=== PATIENT | male | born 1970 | race Hispanic/Latino ===

== ENCOUNTER 2017-05-31 06:57 | Emergency (ER) | payer SELFPAY ==
[2017-05-31] MEDS ORDERED: NORCO 5/325 PO ONE (08:04)
[2017-05-31 08:12] LABS: Bilirubin,Urine NEG (Negative); Blood,Urine SM (Negative); Ketones,Urine NEG (Negative); Leukocyte Esterase,Urine NEG (Negative); Mucus,Urine 1+ /HPF; Nitrite,Urine NEG (Negative); Protein,Urine <15 mg/dL mg/dL (Negative); Urobilinogen,Urine < 2.0 mg/dL (<2.0)
[2017-05-31 08:12] LABS: Basophils % (Auto) 0.5 % (0.0-1.8); Eosinophils % (Auto) 2.1 % (0.0-4.3); Hematocrit 45.3 % (35.5-45.6); Hemoglobin 15.1 gm/dl (11.8-15.2); Mean Corpuscular HGB Conc 33 % (32-34); Mean Corpuscular Hemoglobin 30 pg (28-32); Mean Corpuscular Volume 90 fl (84-94); Platelet Count 166 K/mm3 (140-440); Red Blood Count 5.04 M/mm3 (3.65-5.03); Red Cell Distribution Width 13.9 % (13.2-15.2)
[2017-05-31 08:30] LABS: Alanine Aminotransferase 32 units/L (7-56); Albumin 4.4 g/dL (3.9-5); Albumin/Globulin Ratio 1.6 %; Alkaline Phosphatase 53 units/L (35-129); Anion Gap 17 mmol/L; BUN/Creatinine Ratio 16.66; Blood Urea Nitrogen 15 mg/dL (9-20); Calcium 8.5 mg/dL (8.4-10.2); Carbon Dioxide 23 mmol/L (22-30); Chloride 101.5 mmol/L (98-107); Glucose 132 mg/dL (75-100); Lipase 25 units/L (13-60); Sodium 137 mmol/L (137-145); Total Protein 7.2 g/dL (6.3-8.2)
--- NOTE | 2017-05-31 08:57 | Emergency Department Report ---
ED Back Pain/Injury HPI - General Chief Complaint: Abdominal Pain Stated Complaint: BACK PAIN/RT SIDE SWOLLEN Time Seen by Provider: 05/31/17 07:56 Source: patient Mode of arrival: Ambulatory Limitations: No Limitations - History of Present Illness Initial Comments: PT c/o being "in pain" PT states the pain started Tuesday at work and is still constant. 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 PT denies injury or trauma. PT states that he has had this intermittent pain for years. PT states this is the longest the pain has lasted. PT states the pain is worse when he sits. Pt states his back is swollen. MD Complaint: back pain -: Gradual, days(s) (5 days ) Similar Symptoms Previously: Yes Place: work Radiation: abdomen Severity scale (0 -10): 10 Quality: sharp Consistency: constant Improves With: none Worsens With: movement, sitting upright Context: unknown Associated Symptoms: abdominal pain. denies: difficulty walking, difficulty urinating, incontinence, nausea/vomiting - Related Data Previous Rx's Medication Instructions Recorded Last Taken Type Acetaminophen/Codeine [Tylenol #3] 1 tab PO Q6H PRN #12 tab 05/31/17 Unknown Rx Ibuprofen [Motrin] 600 mg PO Q8H PRN #15 tablet 05/31/17 Unknown Rx methOCARBAMOL [Robaxin TAB] 500 mg PO Q6H PRN #15 tablet 05/31/17 Unknown Rx Allergies Allergy/AdvReac Type Severity Reaction Status Date / Time No Known Allergies Allergy Unverified 04/10/16 15:00 ED Review of Systems ROS: Stated complaint: BACK PAIN/RT SIDE SWOLLEN Other details as noted in HPI Comment: All other systems reviewed and negative Constitutional: denies: chills, fever Respiratory: denies: shortness of breath, SOB with exertion, SOB at rest Cardiovascular: denies: chest pain, syncope Gastrointestinal: abdominal pain. denies: nausea, vomiting Musculoskeletal: back pain Skin: denies: change in color Neurological: denies: weakness ED Past Medical Hx - Past Medical History Previous Medical History?: No - Surgical History Past Surgical History?: No - Social History Smoking Status: Current Some Day Smoker Substance Use Type: Alcohol - Medications Home Medications: Home Medications Medication Instructions Recorded Confirmed Last Taken Type Acetaminophen/Codeine [Tylenol #3] 1 tab PO Q6H PRN #12 tab 05/31/17 Unknown Rx Ibuprofen [Motrin] 600 mg PO Q8H PRN #15 tablet 05/31/17 Unknown Rx methOCARBAMOL [Robaxin TAB] 500 mg PO Q6H PRN #15 tablet 05/31/17 Unknown Rx ED Physical Exam - General Limitations: No Limitations General appearance: alert, in no apparent distress - Head Head exam: Present: atraumatic, normocephalic - Eye Eye exam: Present: normal appearance, PERRL, EOMI. Absent: conjunctival injection - Neck Neck exam: Present: normal inspection, full ROM. Absent: tenderness - Respiratory Respiratory exam: Present: normal lung sounds bilaterally. Absent: respiratory distress, chest wall tenderness, accessory muscle use - Cardiovascular Cardiovascular Exam: Present: regular rate, normal rhythm, normal heart sounds - GI/Abdominal GI/Abdominal exam: Present: soft, normal bowel sounds. Absent: tenderness, guarding, rebound - Expanded GI/Abdominal Exam Expanded GI/Abdominal exam: Absent: Schreiber's sign, tenderness at Mcburney's Point - Extremities Exam Extremities exam: Present: normal inspection, full ROM - Back Exam Back exam: Present: normal inspection, tenderness (R lumbar ), muscle spasm (R lumbar ), paraspinal tenderness (R lumbar ). Absent: full ROM, CVA tenderness ( R), CVA tenderness (L), vertebral tenderness - Expanded Back Exam Expanded Back exam: Absent: saddle anesthesia Back exam: Sciatic Notch Tenderness: Right - Neurological Exam Neurological exam: Present: alert, oriented X3, normal gait - Psychiatric Psychiatric exam: Present: normal affect, normal mood - Skin Skin exam: Present: warm, dry, intact, normal color ED Course Vital Signs 05/31/17 05/31/17 07:11 10:56 Temperature 98.7 F Pulse Rate 75 61 Respiratory 20 18 Rate Blood Pressure 118/77 Blood Pressure 139/95 [Right] O2 Sat by Pulse 100 98 Oximetry - Reevaluation(s) Reevaluation #1: 05/31/17 09:04 PT aware of lab results and dx. PT denies pain relief. PT aware new orders placed. Reevaluation #2: 05/31/17 10:40 PT states his pain decreased after Toradol and Solu-medrol - Pulse Oximetry Interpretation Digit-Finger Initial Pulse Oximetry Readin Actions Taken: none ED Medical Decision Making - Lab Data Result diagrams: 05/31/17 07:59 05/31/17 07:59 Labs 05/31/17 05/31/17 05/31/17 07:53 07:59 07:59 WBC 7.0 RBC 5.04 H Hgb 15.1 Hct 45.3 MCV 90 MCH 30 MCHC 33 RDW 13.9 Plt Count 166 Lymph % (Auto) 19.9 [place]ake % (Auto) 7.9 H Eos % (Auto) 2.1 Baso % (Auto) 0.5 Lymph # 1.4 Leake # 0.6 Eos # 0.1 Baso # 0.0 Seg Neutrophils % 69.6 Seg Neutrophils # 4.8 Sodium 137 Potassium 4.0 Chloride 101.5 Carbon Dioxide 23 Anion Gap 17 BUN 15 Creatinine 0.9 Estimated GFR > 60 BUN/Creatinine Ratio 16.66 Glucose 132 H Calcium 8.5 Total Bilirubin 0.60 AST 29 ALT 32 Alkaline Phosphatase 53 Total Protein 7.2 Albumin 4.4 Albumin/Globulin Ratio 1.6 Lipase 25 Urine Color Yellow Urine Turbidity Clear Urine pH 5.0 Ur Specific [place] 1.023 Urine Protein <15 mg/dl Urine Glucose (UA) Neg Urine Ketones Neg Urine Blood Sm Urine Nitrite Neg Urine Bilirubin Neg Urine Urobilinogen < 2.0 Ur Leukocyte Esterase Neg Urine WBC (Auto) 1.0 Urine RBC (Auto) 2.0 U Epithel Cells (Auto) < 1.0 Urine Mucus 1+ - Differential Diagnosis strain, renal colic, sciatica Critical Care Time: No Critical care attestation.: If time is entered above; I have spent that time in minutes in the direct care of this critically ill patient, excluding procedure time. ED Disposition Clinical Impression: Low back pain Qualifiers: Chronicity: acute Back pain laterality: right Sciatica presence: with sciatica Sciatica laterality: sciatica of right side Qualified Code(s): M54.41 - Lumbago with sciatica, right side Disposition: - TO HOME OR SELFCARE Is pt being admited?: No Does the pt Need Aspirin: No Condition: Stable Instructions: Low Back Strain (ED), Acute Low Back Pain (ED), Lumbar Radiculopathy (ED) Additional Instructions: Do not drive or drink alcohol after taking Robaxin or Tylenol #3 follow up with PCP in 3-5 days With the pain extending down your Right leg, you may need to follow up with a neurosurgeon Prescriptions: Acetaminophen/Codeine [Tylenol #3] 1 tab PO Q6H PRN #12 tab PRN Reason: Pain , Severe (7-10) Ibuprofen [Motrin] 600 mg PO Q8H PRN #15 tablet PRN Reason: Pain methOCARBAMOL [Robaxin TAB] 500 mg PO Q6H PRN #15 tablet PRN Reason: Muscle Spasm Referrals: PRIMARY CARE, [Primary Care Provider] - 3-5 Days EMERALD CASTANEDA MD [Referring] - 3-5 Days CONCETTA MORA MD [Staff Physician] - 3-5 Days [facility] [Outside] - 3-5 Days Forms: Work/School Release Form(ED) Time of Disposition: 10:45
[2017-05-31] MEDS ORDERED: TORADOL IM ONE (09:04)
[2017-05-31 10:57] VITALS: BP 139/95
== END 2017-05-31 10:55 | disposition home or self-care (01) ==
LOC: ED 06:57
DX: M54.41 Lumbago with sciatica, right side (principal); F17.200 Nicotine dependence, unspecified, uncomplicated
CPT/HCPCS: 36415; 80053; 81001; 83690; 85025; 96372; 99283; J1885; J2930

== ENCOUNTER 2017-11-22 08:37 | Emergency (ER) | payer BC ==
[2017-11-22 10:11] LABS: Bilirubin,Urine NEG (Negative); Blood,Urine MOD (Negative); Color,Urine Yellow (Yellow); Mucus,Urine FEW /HPF; Nitrite,Urine NEG (Negative); Protein,Urine <15 mg/dL mg/dL (Negative); Urobilinogen,Urine < 2.0 mg/dL (<2.0)
[2017-11-22 11:36] LABS: Basophils % (Auto) 0.4 % (0.0-1.8); Eosinophils # (Auto) 0.1 K/mm3 (0.0-0.4); Eosinophils % (Auto) 1.6 % (0.0-4.3); Hemoglobin 14.7 gm/dl (11.8-15.2); Lymphocytes # (Auto) 1.5 K/mm3 (1.2-5.4); Lymphocytes % (Auto) 20.9 % (13.4-35.0); Mean Corpuscular HGB Conc 33 % (32-34); Mean Corpuscular Hemoglobin 30 pg (28-32); Mean Corpuscular Volume 91 fl (84-94); Monocytes # (Auto) 0.5 K/mm3 (0.0-0.8); Monocytes % (Auto) 7.5 % (0.0-7.3); Platelet Count 176 K/mm3 (140-440); Red Blood Count 4.85 M/mm3 (3.65-5.03); Red Cell Distribution Width 14.1 % (13.2-15.2)
[2017-11-22] MEDS ORDERED: ULTRAM PO ONE (11:55)
[2017-11-22] MEDS ORDERED: MOTRIN PO ONE (11:55)
--- NOTE | 2017-11-22 12:00 | Emergency Department Report ---
ED Back Pain/Injury HPI - General Chief Complaint: Back Pain/Injury Stated Complaint: LEFT FLANK/ABDOMINAL SWELLING Time Seen by Provider: 11/22/17 09:45 Source: patient Limitations: No Limitations - History of Present Illness Initial Comments: This is a 47-year-old male nontoxic, well nourished in appearance, no acute signs of distress presents to the ED with c/o of back/flank pain x3 weeks. 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 Patient stated developed pain ever since then. Patient denies any bladder or bowel instability or retention. Patient stated symptoms of pain radiates to left lower extremity. Patient denies any chest pain, shortness of breathe, fever, chills, headache, nausea, vomiting, abdominal pain, stiff neck, numbness, or tingling. Patient stated it is difficult to walk due to the pain. Patient denies any allergies or PMH. MD Complaint: back injury -: week(s) (3) Similar Symptoms Previously: No Place: work Radiation: left leg Severity: mild Severity scale (0 -10): 8 Quality: aching Consistency: constant Improves With: none Worsens With: none Context: other (direct blow) Associated Symptoms: denies: confusion, weakness, chest pain, numbness, difficulty walking, cough, difficulty urinating, diaphoresis, incontinence, fever/chills, constipation, headaches, abdominal pain, loss of appetite, malaise , nausea/vomiting, rash, seizure, shortness of breath, syncope - Related Data Previous Rx's Medication Instructions Recorded Last Taken Type Acetaminophen/Codeine [Tylenol #3] 1 tab PO Q6H PRN #12 tab 05/31/17 Unknown Rx Ibuprofen [Motrin] 600 mg PO Q8H PRN #15 tablet 05/31/17 Unknown Rx methOCARBAMOL [Robaxin TAB] 500 mg PO Q6H PRN #15 tablet 05/31/17 Unknown Rx Cyclobenzaprine [Flexeril] 10 mg PO QHS PRN #7 tablet 11/22/17 Unknown Rx Ibuprofen [Motrin] 600 mg PO Q8H PRN #30 tablet 11/22/17 Unknown Rx Allergies Allergy/AdvReac Type Severity Reaction Status Date / Time No Known Allergies Allergy Unverified 04/10/16 15:00 ED Review of Systems ROS: Stated complaint: LEFT FLANK/ABDOMINAL SWELLING Other details as noted in HPI Constitutional: denies: chills, fever Eyes: denies: eye pain, eye discharge, vision change ENT: denies: ear pain, throat pain Respiratory: denies: cough, shortness of breath, wheezing Cardiovascular: denies: chest pain, palpitations Endocrine: no symptoms reported Gastrointestinal: denies: abdominal pain, nausea, diarrhea Genitourinary: denies: urgency, dysuria Musculoskeletal: back pain. denies: joint swelling, arthralgia Skin: denies: rash, lesions Neurological: denies: headache, weakness, paresthesias Psychiatric: denies: anxiety, depression Hematological/Lymphatic: denies: easy bleeding, easy bruising ED Past Medical Hx - Past Medical History Previous Medical History?: No - Surgical History Past Surgical History?: No - Social History Smoking Status: Never Smoker Substance Use Type: Alcohol - Medications Home Medications: Home Medications Medication Instructions Recorded Confirmed Last Taken Type Acetaminophen/Codeine [Tylenol #3] 1 tab PO Q6H PRN #12 tab 05/31/17 Unknown Rx Ibuprofen [Motrin] 600 mg PO Q8H PRN #15 tablet 05/31/17 Unknown Rx methOCARBAMOL [Robaxin TAB] 500 mg PO Q6H PRN #15 tablet 05/31/17 Unknown Rx Cyclobenzaprine [Flexeril] 10 mg PO QHS PRN #7 tablet 11/22/17 Unknown Rx Ibuprofen [Motrin] 600 mg PO Q8H PRN #30 tablet 11/22/17 Unknown Rx ED Physical Exam - General Limitations: No Limitations General appearance: alert, in no apparent distress - Head Head exam: Present: atraumatic, normocephalic, normal inspection - Eye Eye exam: Present: normal appearance, PERRL, EOMI. Absent: scleral icterus, conjunctival injection, nystagmus, periorbital swelling, periorbital tenderness Pupils: Present: normal accommodation - ENT ENT exam: Present: normal exam, normal orophraynx, mucous membranes moist, TM's normal bilaterally, normal external ear exam - Neck Neck exam: Present: normal inspection, full ROM. Absent: tenderness, meningismus, lymphadenopathy, thyromegaly - Respiratory Respiratory exam: Present: normal lung sounds bilaterally. Absent: respiratory distress, wheezes, rales, rhonchi, stridor, chest wall tenderness, accessory muscle use, decreased breath sounds, prolonged expiratory - Cardiovascular Cardiovascular Exam: Present: regular rate, normal rhythm, normal heart sounds. Absent: bradycardia, tachycardia, irregular rhythm, systolic murmur, diastolic murmur, rubs, gallop - GI/Abdominal GI/Abdominal exam: Present: soft, normal bowel sounds. Absent: distended, tenderness, guarding, rebound, rigid, diminished bowel sounds - Rectal Rectal exam: Present: deferred - Extremities Exam Extremities exam: Present: normal inspection, full ROM, normal capillary refill. Absent: tenderness, pedal edema, joint swelling, calf tenderness - Back Exam Back exam: Present: normal inspection, full ROM, tenderness, paraspinal tenderness (left lumbar region), vertebral tenderness (lumbar spinal tenderness) . Absent: CVA tenderness (R), CVA tenderness (L), muscle spasm, rash noted - Expanded Back Exam Expanded Back exam: Present: normal rectal tone. Absent: saddle anesthesia Back exam: Negative Straight Leg Raising: Left, Right - Neurological Exam Neurological exam: Present: alert, oriented X3, CN II-XII intact, normal gait, reflexes normal - Expanded Neurological Exam Expanded Patient oriented to: Present: person, place, time Sensory exam: Upper Extremity Light Touch: Normal, Upper Extremity Pin Prick: Normal, Upper Extremity Temperature: Normal, UE 2 Point Discrimination: Normal, Lower Extremity Light Touch: Normal, Lower Extremity Pin Prick: Normal, Lower Extremity Temperature: Normal, LE 2 Point Discrimination: Normal Motor strength exam: RUE: 5, LUE: 5, RLE: 5, LLE: 5 DTR: bicep (R): 2+, bicep (L): 2+, tricep (R): 2+, tricep (L): 2+, knee (R): 2+ , knee (L): 2+, ankle (R): 2+, ankle (L): 2+ Best Eye Response (Ellen): (4) open spontaneously Best Motor Response (Ellen): (6) obeys commands Best Verbal Response ([place]): (5) oriented Ellen Total: 15 - Psychiatric Psychiatric exam: Present: normal affect, normal mood - Skin Skin exam: Present: warm, dry, intact, normal color. Absent: rash - Other Other exam information: Normal reflexes to bilateral lower extremity. ED Course Vital Signs 11/22/17 08:50 Temperature 98.4 F Pulse Rate 71 Respiratory 16 Rate Blood Pressure 132/86 O2 Sat by Pulse 98 Oximetry - Reevaluation(s) Reevaluation #1: 11/22/17 12:02 Patient is speaking in full sentences with no signs of distress noted. ED Medical Decision Making - Lab Data Result diagrams: 11/22/17 11:21 11/22/17 11:21 - Medical Decision Making This is a 47-year-old male that presents with low back strain. Patient is stable and was examined by me. UA obtained with elevated RBCs. CT of abd/pelvis without contrast and lumbar spine/without contrast obtained and the radiologist with normal exam of lumbar spine and with punctate bilateral renal calyceal stones are identified. Patient notified of x-ray results with noted by the patient. Patient received Ultram and Motrin in the ED with patient that his symptoms are improving and her subsided. Patient has normal gait and patient is neurologically stable. Negative exam for Cauda equina syndrome. Patient was instructed not to operate any machinery after discharge due to drowsiness from Ultram as he stated he will have someone drive him home. Patient discharged with ibuprofen and Flexeril and was instructed not to operate heavy machinery while taking Flexeril due to sedation. Patient was instructed Follow- up with your primary care doctor in 3-5 days or if symptoms worsen such as bladder or bowel stability, chest pain, short of breath, numbness or tingling sensation in extremities, headache, dizziness, visual changes, nausea vomiting, or abdominal pain, return back to emergency room as was possible. At time time of discharge, the patient does not seem toxic or ill in appearance. No acute signs of distress noted. Patient agrees to discharge treatment plan of care. No further questions noted by the patient. Critical care attestation.: If time is entered above; I have spent that time in minutes in the direct care of this critically ill patient, excluding procedure time. ED Disposition Clinical Impression: Calyceal renal calculus Low back strain Qualifiers: Encounter type: initial encounter Qualified Code(s): S39.012A - Strain of muscle, fascia and tendon of lower back, initial encounter Disposition: - TO HOME OR SELFCARE Is pt being admited?: No Does the pt Need Aspirin: No Condition: Stable Instructions: Ibuprofen (By mouth), Cyclobenzaprine (By mouth), Low Back Strain (ED), Kidney Stones (ED) Additional Instructions: Follow-up with your primary care doctor in 3-5 days or if symptoms worsen such as bladder or bowel stability, chest pain, short of breath, numbness or tingling sensation in extremities, headache, dizziness, visual changes, nausea vomiting, or abdominal pain, return back to emergency room as was possible. Do not operate after discharge due to drowsiness of Ultram that he received in the ED for pain. Take ibuprofen and Flexeril as prescribed. Do not operate heavy machinery while taking Flexeril due to sedation Increase hydration as much as possible. Prescriptions: Cyclobenzaprine [Flexeril] 10 mg PO QHS PRN #7 tablet PRN Reason: Muscle Spasm Ibuprofen [Motrin] 600 mg PO Q8H PRN #30 tablet PRN Reason: Pain Referrals: TAE ARMENDARIZ MD [Primary Care Provider] - 3-5 Days PRIMARY CARE, [Referring] - 3-[address] [facility] [Outside] - 3-5 Days [facility] [Outside] - 3-5 Days Forms: Work/School Release Form(ED)
[2017-11-22 12:01] LABS: BUN/Creatinine Ratio 23; Blood Urea Nitrogen 16 mg/dL (9-20); Calcium 8.7 mg/dL (8.4-10.2); Hemolysis Index 11
--- NOTE | 2017-11-22 14:04 | Cat Scan Report ---
CT ABDOMEN PELVIS WITHOUT CONTRAST: HISTORY: Flank pain. COMPARISON: none. TECHNIQUE: Helical CT in 1.25mm intervals without IV contrast. Sagittal and coronal reconstructions. FINDINGS: Lung bases: Normal. Liver: Normal. Biliary system: Normal. Pancreas: Normal. Spleen: Normal. Kidneys/ureters/bladder: There are one or 2 punctate calyceal stones in both kidneys. No ureteral stones or hydronephrosis. No cystic disease or obvious mass. Ureters are normal course and caliber. The bladder and prostate gland are within normal limits. Adrenal glands: Normal. Aorta: Normal. Intestines: Normal. Appendix: Normal. Ascites: None. Adenopathy: None. Musculoskeletal: Normal. IMPRESSION: Punctate bilateral renal calyceal stones are identified. No hydronephrosis.
--- NOTE | 2017-11-22 14:06 | Cat Scan Report ---
CT LUMBAR SPINE WITH AND WITHOUT CONTRAST HISTORY: Flank pain. TECHNIQUE: Helical CT imaging before and after IV contrast. Sagittal and coronal reformatted images. FINDINGS: There is normal height and alignment of the lumbar vertebra. No evidence for fracture, bone lesion or subluxation. Mild disc space narrowing and vacuum phenomenon is identified at L5-S1. A mild diffuse posterior bulging disc is also identified at L5-S1 with bilateral neural foraminal narrowing estimated at 50%. There is minimal disc space narrowing and bulging disc at L4-5. Mild diffuse facet arthropathy is identified which is most pronounced at L1-2 and L3-4. Anterior bridging osteophytes are identified at both SI joints. No bony erosions or fusion. No abnormal enhancement after IV contrast. IMPRESSION: Mild lumbar spondylosis as described. No acute process or abnormal enhancement.
[2017-11-22 14:45] VITALS: BP 129/84
== END 2017-11-22 14:44 | disposition home or self-care (01) ==
LOC: ED 08:37
DX: S39.012A Strain of muscle, fascia and tendon of lower back, initial encounter (principal); N20.0 Calculus of kidney; X58.XXXA Exposure to other specified factors, initial encounter; Y93.89 Activity, other specified; Y92.89 Other specified places as the place of occurrence of the external cause; Y99.8 Other external cause status
CPT/HCPCS: 36415; 72133; 74176; 80048; 81001; 85025; 99284; Q9967

== ENCOUNTER 2018-03-17 20:03 | Emergency (ER) | payer BC ==
[2018-03-17 20:28] VITALS: BP 100/64
[2018-03-17] MEDS ORDERED: NORCO 5/325 PO ONE (22:59)
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
[2018-03-17] MEDS ORDERED: BOOSTRIX IM ONE (23:00)
[2018-03-17] MEDS ORDERED: TRIPLE ANTIBIOTIC TP ONE (23:00)
== END 2018-03-17 23:51 | disposition home or self-care (01) ==
LOC: ED 20:03
DX: S61.512A Laceration without foreign body of left wrist, initial encounter (principal); I10 Essential (primary) hypertension; F17.200 Nicotine dependence, unspecified, uncomplicated; W45.8XXA Other foreign body or object entering through skin, initial encounter; Y93.89 Activity, other specified; Y92.89 Other specified places as the place of occurrence of the external cause; Y99.8 Other external cause status
CPT/HCPCS: A6250

== ENCOUNTER 2018-03-27 07:11 | Emergency (ER) | payer BC ==
[2018-03-27 07:21] VITALS: BP 145/90
--- NOTE | 2018-03-27 08:14 | Emergency Department Report ---
Suture/Staple Removal - [facility] Chief Complaint: Laceration/Recheck/Suture Stated Complaint: SUTURE REMOVAL Time Seen by Provider: 03/27/18 07:53 When Sutures or Obdulio Placed: 5-7 Days Ago Wound Location: 47M p/f suture removal left wrist. Sutures placed approximately 8 days ago ED Review of Systems ROS: Stated complaint: SUTURE REMOVAL Other details as noted in HPI Constitutional: denies: chills, fever Eyes: denies: eye pain, eye discharge, vision change ENT: denies: ear pain, throat pain Respiratory: denies: cough, shortness of breath, wheezing Cardiovascular: denies: chest pain, palpitations Endocrine: no symptoms reported Gastrointestinal: denies: abdominal pain, nausea, diarrhea Genitourinary: denies: urgency, dysuria Musculoskeletal: denies: joint swelling, arthralgia Skin: as per HPI (sutures left wrist 8 days ago). denies: rash, lesions Neurological: denies: headache, weakness, paresthesias Psychiatric: denies: anxiety, depression Hematological/Lymphatic: denies: easy bleeding, easy bruising ED Past Medical Hx - Past Medical History Previous Medical History?: Yes Hx Hypertension: Yes - Surgical History Past Surgical History?: No - Social History Smoking Status: Current Every Day Smoker Substance Use Type: Alcohol, Prescribed - Medications Home Medications: Home Medications Medication Instructions Recorded Confirmed Last Taken Type Acetaminophen/Codeine [Tylenol #3] 1 tab PO Q6H PRN #12 tab 05/31/17 Unknown Rx Ibuprofen [Motrin] 600 mg PO Q8H PRN #15 tablet 05/31/17 Unknown Rx methOCARBAMOL [Robaxin TAB] 500 mg PO Q6H PRN #15 tablet 05/31/17 Unknown Rx Cyclobenzaprine [Flexeril] 10 mg PO QHS PRN #7 tablet 11/22/17 Unknown Rx Ibuprofen [Motrin] 600 mg PO Q8H PRN #30 tablet 11/22/17 Unknown Rx Acetaminophen/Codeine [Tylenol 1 tab PO Q6H PRN #6 tab 03/17/18 Unknown Rx /Codeine # 3 tab] Cephalexin [Keflex] 500 mg PO Q12HR #10 cap 03/17/18 Unknown Rx Ibuprofen [Motrin] 800 mg PO Q8HR PRN #20 tablet 03/17/18 Unknown Rx Suture Removal Exam - Exam General: Vital signs noted. No distress. Alert and acting appropriately. Wound: No Pathologic Erythema, No Tenderness, No Drainage, No Pus, No Wound Dehiscence (wound is clean with no dehiscence. No signs of infection or purulent drainage) Other Systems: All other systems reviewed and are unremarkable. ED Course Vital Signs 03/27/18 07:18 Temperature 97.8 F Pulse Rate 84 Respiratory 20 Rate Blood Pressure 145/90 O2 Sat by Pulse 96 Oximetry ED Recheck MDM - Differential Diagnosis Suture/Staple Removal - Medical Decision Making A/P: simple suture removal leftwrist 1-has healed well with no dehiscence of infection 2-4 sutures removed from left wrist without difficulty Critical care attestation.: If time is entered above; I have spent that time in minutes in the direct care of this critically ill patient, excluding procedure time. ED Disposition Clinical Impression: Encounter for removal of sutures Disposition: DC-01 TO HOME OR SELFCARE Is pt being admited?: No Does the pt Need Aspirin: No Condition: Stable Instructions: Suture Removal (ED) Referrals: MITUL METZGER PAC-C [Primary Care Provider] - 3-5 Days Time of Disposition: 08:12
== END 2018-03-27 08:20 | disposition home or self-care (01) ==
LOC: ED 07:11
DX: Z48.02 Encounter for removal of sutures (principal); I10 Essential (primary) hypertension; F17.200 Nicotine dependence, unspecified, uncomplicated

== ENCOUNTER 2019-05-15 07:44 | Emergency (ER) | payer BC ==
[2019-05-15 08:15] VITALS: BP 147/91
[2019-05-15] MEDS ORDERED: TORADOL IM ONE (09:58)
[2019-05-15] MEDS ORDERED: DELTASONE PO ONE (09:58)
--- NOTE | 2019-05-15 10:09 | Emergency Department Report ---
HPI - General Chief Complaint: Extremity Problem,Nontraumatic Time Seen by Provider: 05/15/19 09:34 - HPI HPI: This is a 48-year-old male with no prior medical condition other than his sleep disc in the lumbar spine who presents to ED complaining of 2 weeks worth of back pain radiating down his left thigh. Patient states that he usually gets a flareup. So [place]. Patient states that he's been experiencing some tingling type pain radiating from his back to his thigh. He denies any recent trauma or injuries. Patient states that the symptoms of inguinal for the past 2 years. Patient has not been to [facility]. Patient is up ambulating without problem. He denies fall, trauma, ED Past Medical Hx - Past Medical History Previous Medical History?: Yes Hx Hypertension: Yes Additional medical history: "Slipped disc in back" - Surgical History Past Surgical History?: No - Social History Smoking Status: Current Every Day Smoker Substance Use Type: None - Medications Home Medications: Home Medications Medication Instructions Recorded Confirmed Last Taken Type Acetaminophen/Codeine [Tylenol #3] 1 tab PO Q6H PRN #12 tab 05/31/17 Unknown Rx Ibuprofen [Motrin] 600 mg PO Q8H PRN #15 tablet 05/31/17 Unknown Rx methOCARBAMOL [Robaxin TAB] 500 mg PO Q6H PRN #15 tablet 05/31/17 Unknown Rx Ibuprofen [Motrin] 600 mg PO Q8H PRN #30 tablet 11/22/17 Unknown Rx Acetaminophen/Codeine [Tylenol 1 tab PO Q6H PRN #6 tab 03/17/18 Unknown Rx /Codeine # 3 tab] cephALEXin [Keflex] 500 mg PO Q12HR #10 cap 03/17/18 Unknown Rx Cyclobenzaprine [Flexeril 10 MG 10 mg PO QHS PRN #20 tablet 05/15/19 Unknown Rx TAB] Ibuprofen [Motrin 800 MG tab] 800 mg PO Q8HR PRN #20 tablet 05/15/19 Unknown Rx ED Review of Systems ROS: Stated complaint: NUMBNESS LT LEGG Other details as noted in HPI Comment: All other systems reviewed and negative Physical Exam - Physical Exam Vital Signs: Vital Signs 05/15/19 08:13 Temperature 98.0 F Pulse Rate 65 Respiratory 18 Rate Blood Pressure 147/91 O2 Sat by Pulse 94 Oximetry Physical Exam: GENERAL: Alert and oriented x3, no apparent distress, Normal Gait, atraumatic. HEAD: Head is normocephalic and a-traumatic. BACK: Full range of motion, no spinal tenderness, EXTREMITIES/MUSCULOSKELETAL: No cyanosis, clubbing, rash, lesions or edema. Full ROM bilaterally. LE Pulses 2+ bilaterally. LE 5+ strength bilaterally, NEUROLOGIC: The patient is cooperative with no focal neurologic deficits. SKIN: Warm and dry, No lesions, No ulceration or induration present. ED Course Vital Signs 05/15/19 08:13 Temperature 98.0 F Pulse Rate 65 Respiratory 18 Rate Blood Pressure 147/91 O2 Sat by Pulse 94 Oximetry ED Medical Decision Making - Medical Decision Making 48-year-old female presents to ED with lumbar radiculopathy from a slipped disc ED course: Patient received Toradol and prednisone in ED. Vital signs are normal patient is in no acute distress Discussed with patient follow-up with orthopedic doctor. Discussed the patient and take medications as prescribed. Patient has no neurological deficit. Patient is alert and oriented 3 and understands all instructions given. Discussed drowsiness effect of Flexeril makes him drowsy and not to operate machinery while taking flexeril . Critical care attestation.: If time is entered above; I have spent that time in minutes in the direct care of this critically ill patient, excluding procedure time. ED Disposition Clinical Impression: Lumbar back pain, Lumbar radiculopathy Disposition: - TO HOME OR SELFCARE Is pt being admited?: No Does the pt Need Aspirin: No Condition: Stable Instructions: Lumbar Disc Herniation (ED), Lumbar Radiculopathy (ED), Degenerative Disc Disease (ED) Additional Instructions: Make sure to follow up with the primary care physician as discussed. Take all your medications as you've been prescribed. If you have any worsening symptoms or develop new symptoms please return to ED immediately. Prescriptions: Cyclobenzaprine [Flexeril 10 MG TAB] 10 mg PO QHS PRN #20 tablet PRN Reason: Muscle Spasm Ibuprofen [Motrin 800 MG tab] 800 mg PO Q8HR PRN #20 tablet PRN Reason: Pain Referrals: KEVIN TORRE MD [Primary Care Provider] - 3-5 Days PEYTON OLIVEROS MD [Staff Physician] - 3-5 Days Forms: Accompanied Note, Work/School Release Form(ED) Time of Disposition: 10:44
== END 2019-05-15 10:59 | disposition home or self-care (01) ==
LOC: ED 07:44
DX: M54.16 Radiculopathy, lumbar region (principal); I10 Essential (primary) hypertension; F17.200 Nicotine dependence, unspecified, uncomplicated; Z79.899 Other long term (current) drug therapy
CPT/HCPCS: 96372; 99282; J1885; J7512

== ENCOUNTER 2019-10-05 09:00 | Emergency (ER) | payer BC ==
[2019-10-05 09:36] VITALS: BP 141/85
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
[2019-10-05] MEDS ORDERED: KETOROLAC 30 MG/1 ML INJ IM ONE (11:21)
--- NOTE | 2019-10-05 12:32 | Cat Scan Report ---
CT LUMBAR SPINE WITHOUT CONTRAST INDICATION: low back pain. TECHNIQUE: Axial imaging performed through the lumbar without the use of contrast. Sagittal and cor onal reconstructed images were also reviewed. All CT scans at this location are performed using CT d ose reduction for ALARA by means of automated exposure control. COMPARISON: None FINDINGS: Alignment: Spinal alignment is normal. Bones: There is no acute osseous abnormality. Moderate to severe degenerative disc narrowing with v acuum phenomenon is identified at L5-S1. Mild disc space narrowing and endplate spurring is identifie d at the remaining levels. Mild diffuse facet arthropathy is evident. Soft tissues: No acute or significant incidental soft tissue abnormality. IMPRESSION: Mild to moderate lumbar spondylosis which is most pronounced at L5-S1. No acute process identified. Signer Name: Sahquille Montoya Jr, MD Signed: 10/05/2019 12:27 PM Workstation Name: [id number]
== END 2019-10-05 14:00 | disposition home or self-care (01) ==
LOC: ED 09:00
DX: S39.012A Strain of muscle, fascia and tendon of lower back, initial encounter (principal); I10 Essential (primary) hypertension; Z79.899 Other long term (current) drug therapy; Z79.1 Long term (current) use of non-steroidal anti-inflammatories (NSAID); X58.XXXA Exposure to other specified factors, initial encounter; Y93.89 Activity, other specified; Y92.89 Other specified places as the place of occurrence of the external cause; Y99.8 Other external cause status
CPT/HCPCS: 72131; 96372; 99283; J1885